=== PATIENT | female | born 1960 | race Caucasian/White ===

== ENCOUNTER → 2016-08-30 07:54 | Outpatient (CLI) | payer BC ==
[2016-04-04 10:59] VITALS: BMI 42.8
[~2016-08-30 07:54] MED LIST: DEXILANT60 MG PO; HYDROCODONE-APA1 TAB PO; PEPCID40 MG PO; PHENERGAN25 M1 PO; REGLAN10 MG PO
== END | disposition home or self-care (01) ==
LOC: D.RAD 07:54
DX: R13.10 Dysphagia, unspecified (principal)

== ENCOUNTER → 2018-01-15 08:37 | Outpatient (CLI) | payer BC ==
[~2018-01-15] VITALS: Ht 167.6 cm; Wt 131.1 kg
[2018-01-15 10:05] VITALS: Ht 167.6 cm; Wt 131.1 kg
== END | disposition home or self-care (01) ==
LOC: D.FANS 01-01 09:00
DX: E66.01 Morbid (severe) obesity due to excess calories (principal)

== ENCOUNTER → 2018-05-27 06:49 | Outpatient (CLI) | payer BC ==
[2018-01-15 10:05] VITALS: BMI 46.6
== END | disposition home or self-care (01) ==
LOC: D.MRI 06:49
DX: M17.0 Bilateral primary osteoarthritis of knee (principal)

== ENCOUNTER → 2018-08-23 10:56 | Outpatient (CLI) | payer BC ==
[2018-01-15 10:05] VITALS: BMI 46.6
== END | disposition home or self-care (01) ==
LOC: D.LABREF 10:56
PROVIDERS: ATTEND Orthopaedic Surgery
DX: M17.11 Unilateral primary osteoarthritis, right knee (principal); Z11.8 Encounter for screening for other infectious and parasitic diseases

== ENCOUNTER → 2018-08-23 12:26 | Outpatient (CLI) | payer BC ==
[2018-01-15 10:05] VITALS: BMI 46.6
== END | disposition home or self-care (01) ==
LOC: D.LABREF 12:26
PROVIDERS: ATTEND Orthopaedic Surgery
DX: M17.11 Unilateral primary osteoarthritis, right knee (principal); Z11.8 Encounter for screening for other infectious and parasitic diseases

== ENCOUNTER → 2019-03-24 09:22 | Outpatient (CLI) | payer BC ==
[2018-01-15 10:05] VITALS: BMI 46.6
== END | disposition home or self-care (01) ==
LOC: D.RAD 09:22
PROVIDERS: ATTEND Internal Medicine Gastroenterology
DX: R10.13 Epigastric pain (principal); K92.1 Melena

== ENCOUNTER → 2019-04-08 12:47 | Outpatient (CLI) | payer BC ==
[2018-01-15 10:05] VITALS: BMI 46.6
[2019-04-08 13:52] LABS: ALBUMIN 3.7 g/dL (3.4-5.0); BILIRUBIN - DIRECT 0.12 mg/dL (0.00-0.30); BILIRUBIN - INDIRECT 0.35 mg/dL (0.00-1.00); BILIRUBIN - TOTAL 0.47 mg/dL (0.2-1.3); PROTEIN - SERUM 7.3 g/dL (6.4-8.2)
== END | disposition home or self-care (01) ==
LOC: D.LAB 12:47
PROVIDERS: ATTEND Internal Medicine Gastroenterology
DX: R10.13 Epigastric pain (principal)